=== PATIENT | male | born 1950 | race Caucasian/White ===

== ENCOUNTER → 2019-05-20 06:29 | Outpatient (CLI) | payer MEDICARE, SELFPAY ==
--- NOTE | 2019-05-20 | CA_ITS ---
APPROVED REPORT Exam: Pharmacologic Technologist: Meli Neil Ht: 6 ft 1 in Wt: 215 lbs BSA: 2.22 m2 HR: 69 bpm BP: 140/76 mmHg Indications: CAD, SOB, AAA, Smoker Medical History Medications: Aspirin,,,,, Carvedilol,,,,, TAMSULOSIN,,,,, Plavix,,,,, Nitro,,,,, Bicalutamide,,,,, Stress Test Details Test: LEXISCAN HR Resting HR: 50 bpm Max Heart Rate (APMHR): 154 bpm Max HR Achieved: 96 bpm Target HR (85% APMHR): 130 bpm % of APMHR: 62 Recovery HR: 77 bpm BP Resting BP: 140.0/76.0 mmHg Max BP: 140.0/76.0 mmHg Recovery BP: 112.0/66.0 mmHg ECG Clinical Exercise duration: 04:01 min Highest Stage Achieved: Exercise capacity: 1.0 METs Stress ECG Conclusion Resting ECG: Sinus rhythm with right bundle branch block. Lexiscan portion complete. Symptoms: Chest pain at peak infusion, resolved in recovery. No shortness of breath. Arrhythmias/Ectopy: No ectopy. ST-T Changes: Less than 1.[address] depression. Conclusion: Images to follow. Test Summary RECOVERY 04:24 . . 76 . 112/ 66 . . REST 25:19 . . 50 . 140/ 76 . . Stage 1 01:00 . . 82 . . . . Stage 2 01:00 . . 85 . 85/ 55 . . Stage 3 01:00 . . 83 . 89/ 60 . . Stage 4 01:00 . . 84 . 101/ 64 . . Stage 4 01:01 . . 84 . 101/ 64 . Stop exercise at 04:01 RECOVERY 01:00 . . 85 . 102/ 67 . . RECOVERY 02:00 . . 82 . 108/ 75 . . RECOVERY 03:00 . . 80 . 117/ 70 . . RECOVERY 04:00 . . 76 . 112/ 66 . . RECOVERY 04:24 . . 76 . 112/ 66 . . Electronically signed by : Emanuel Lau, 05/20/2019 19:57:53
--- NOTE | 2019-05-20 06:33 | CA_ITS ---
APPROVED REPORT EXAM: Comprehensive 2D, Doppler, and color-flow Echocardiogram Thin Film Technician: Barbi Driscoll RT(R) Ht: 6 ft 1 in Wt: 207lbs BSA: 2.18 BP: 140/80 mmHg Indications: smoking, HTN, SOB, Hyperlipidemia, hx of CHF, CAD, hx of 2 cardiac stents 2D Dimensions LVOT 1.86 cm (M/F) 1.5-2.5 M-Mode Dimensions RVDd 2.57 cm (0.9-2.6) LVDd 4.42 cm (3.5-5.7) LVDs 3.48 cm (3.5-5.7) IVSd 1.32 cm (0.6-1.1) PWd 1.02 cm (0.6-1.1) EF (Teich) 43.30% FS 21.30% EDV (Teich) 88.60 mL ESV (Teich) 50.20 mL LV Diastology E/A Ratio 0.73 Mitral Valve MV A Velocity 82.00 (40-130 cm/s) Left Ventricle Left atrium is mildly enlarged, left ventricle is normal size, mild concentric left ventricular hypertrophy, visually estimated ejection fraction 45%, there is moderate hypokinesis involving the distal septum and apical wall. Grade 1 diastolic dysfunction seen without tissue Doppler evidence of raise left atrial pressure. Right Ventricle Right atrium and right ventricular normal size and contractility. Aortic Valve Aortic valve is minimally thickened and fibrosed, there is no aortic stenosis or aortic insufficiency. Mitral Valve Mitral valve is grossly normal, there is mild mitral regurgitation. Tricuspid Valve Tricuspid valve is grossly normal, there is mild tricuspid regurgitation. Pulmonic Valve Pulmonic valve is poorly visualized. Great Vessels Aortic root is normal size. Pericardium No significant pericardial effusion noted. Conclusion 1. Mildly enlarged left atrium, normal left ventricular size, mild concentric left ventricular hypertrophy, visually estimated ejection fraction 45% with multiple segmental wall motion abnormality described above, grade 1 diastolic dysfunction seen without tissue Doppler evidence of raise left atrial pressure. 2. Mild mitral and tricuspid regurgitation. 3. No significant pericardial effusion noted. Electronically signed by : Emanuel Lau, 05/20/2019 21:18:54
--- NOTE | 2019-05-20 06:35 | US_ITS ---
PROCEDURE: US ABD. AORTA SCREENING CLINICAL INDICATION: tobacco use Screening for abdominal aortic aneurysm COMPARISON: No exams were available for comparison FINDINGS: There is fusiform dilatation of the mid aspect of the abdominal aorta at 4.4 cm AP and 3.7 cm transverse. This does appear to taper at the bifurcation. Proximal common iliacs are unremarkable. The measurements given range from 4 to 4.7 cm AP IMPRESSION: Mid abdominal aortic aneurysm at least at 4.4 x 3.[address] angiogram for better visualization and more accurate measurements and have a more accurate baseline for follow-up. Dictated by: Alexys Barrios MD 05/21/2019 08:24 Electronically signed by Alexys Barrios MD in [facility] 05/21/2019 08:24
--- NOTE | 2019-05-20 06:35 | NM_ITS ---
APPROVED REPORT Exam: Nuclear Stress Test Indication: Chest pain, SOB, CAD, Fatigue, Tobacco use, Family history Patient Location: Outpatient Stress Tech: Meli Neil NM Tech:Dulce Shipley, ARRT, RT (R)(N) Ht: 6 ft 1 in Wt: 215 lbs HR: 69 bpm BP: 140/76 mmHg BSA: 2.22 m2 BMI: 28.3 History: Chest pain, SOB, CAD, Fatigue, Tobacco use, Family history Procedure: Patient received a 0.4 mg of intravenous Lexiscan, resting heart rate 69 bpm, resting blood pressure 140/76 mmHg, with Lexiscan maximum heart rate achived was 87 bpm which is Less than 85 % of the maximum predicted heart rate and blood pressure was 85/55 mmHg. Electrocardiogram Resting electrocardiogram showed sinus rhythm anterior infarct age indeterminate, with Lexiscan there is less than 1.[address] segment depression noted from the baseline EKG. Cardiac Stress and Resting SPECT Images: Cardiac Stress and Resting SPECT images were obtained using technetium 99m Myoview 28.9 mCi stress and 10.07 mCi at rest. Gated SPECT with analysis of segmental wall motion and calculation of the ejection fraction also done. Cardiac stress and resting SPECT images show a fixed defect involving the distal anterior apical apical and inferior apical wall and a fixed pattern consistent with area of myocardial scarring with minimal katarzyna-infarct ischemia. Computer derived ejection fraction 56% with marked hypokinesis involving the distal anterior apical, apical and inferior apical wall. Right ventricle is normal size and contractility. Conclusion: 1. The EKG portion of the Lexiscan Myoview is nondiagnostic. 2. Scintigraphic evidence of myocardial scar scarring with minimal katarzyna-infarct ischemia involving the distal anterior, apical and inferior apical wall. Computer derived ejection fraction is 56% with segmental wall motion abnormality described above, right ventricle is normal size and contractility. 3. Abnormal Lexiscan Myoview study. Electronically signed by : Emanuel Lau, 05/20/2019 20:00:38
--- NOTE | 2019-05-20 07:08 | HMH.ITSHM ---
Current Home Medications as stated by this patient Luis Fernando Parker or outside dealer sales representative. []PLAVIX ASA TAMSULOSIN NITRO CARVEDILOL BICALUTAMIDE
== END ==
PROVIDERS: PCP Family Medicine; Visit Provider Internal Medicine Cardiovascular Disease
DX: R06.02 Shortness of breath (principal); E78.2 Mixed hyperlipidemia; I11.9 Hypertensive heart disease without heart failure; I25.10 Atherosclerotic heart disease of native coronary artery without angina pectoris; I50.20 Unspecified systolic (congestive) heart failure; R09.89 Other specified symptoms and signs involving the circulatory and respiratory systems; R53.83 Other fatigue; Z72.0 Tobacco use; R94.31 Abnormal electrocardiogram [ECG] [EKG]
CPT/HCPCS: 76705; 78452; 93017; 93306; A9502; J2785

== ENCOUNTER → 2019-06-17 09:15 | Outpatient (CLI) | payer MEDICARE, SELFPAY ==
[2019-06-17 09:44] LABS: Anion Gap 12.9 mEq/L (5-15); Blood Urea Nitrogen 18 mg/dL (7-18); Calcium 9.1 mg/dL (8.5-10.1); Carbon Dioxide 28 mmol/L (21.0-32.0); Chloride 105 mmol/L (98-107); Creatinine,Serum 1.02 mg/dL (0.70-1.30); Estimated Glomerular Filt Rate 73 ml/min (>60); GFR (African American) 88 ML/MIN (>60); Glucose 97 mg/dL (74-106); Potassium 4.9 mmoL/L (3.5-5.1); Sodium 141 mmol/L (136-145)
[2019-06-17 09:54] LABS: Basophils % 0.6 % (0.1-2.0); Eosinophils # 0.2 K/mm3 (0.0-0.4); Eosinophils % 3.1 % (0.1-12.0); Hematocrit 41.5 % (42.0-52.0); Hemoglobin 13.5 g/dL (14.1-18.0); Lymphocytes # 1.4 K/mm3 (0.7-4.5); Lymphocytes % 23.2 % (10-50); Mean Corpuscular HGB Conc 32.5 g/dL (31.8-35.4); Mean Corpuscular Volume 92.1 fl (80-94); Mean Platelet Volume 6.6 fl (7.4-10.4); Monocytes # 0.5 K/mm3 (0.1-1.0); Monocytes % 7.7 % (1.7-9.3); Neutrophils # 3.9 K/mm3 (1.8-7.8); Neutrophils % 65.4 % (37.0-80.0); Platelet Count 298 K/mm3 (142-424); Red Blood Count 4.51 M/mm3 (4.60-6.20); Red Cell Distribution Width 14.2 % (11.5-17.5); White Blood Count 5.9 K/mm3 (4.8-10.8)
--- NOTE | 2019-06-17 13:32 | CT_ITS ---
Procedure: CT ANGIO ABDOMEN Patient Age:68Y CLINICAL HISTORY: Previous screening ultrasound revealed developing abdominal aortic aneurysm. CT for further evaluation. COMPARISON: US ABD. AORTA SCREENING from 05/20/2019 the the TECHNIQUE: IV Contrast: 100ml Optiray 350 Helical axial images obtained with sagittal and coronal reformats. All CT scans at the facility use one or more dose reduction, viz: automated exPosure control, ma/kV adjustment per patient size (including targeted exams where dose is matched to indication, i.e. head), or iterative reconstruction technique. FINDINGS: Arteries: Images begin at the lower thorax noted generous caliber aorta throughout. He aneurysmal dilated segment of the lower abdominal aorta which extends for5.5 cm length. Aorta measures up to 4.6cm AP maximally diameter x 3.65 cm transverse there is diffuse crescentic noncalcified atheromatous plaque is throughout the aorta but becomes most evident at the aneurysmal segment. The inferior margin the aneurysm ends at the level of BERNADETTE and with aneurysm extending 5.5 cm superior to this point More distally (just below the BERNADETTE and just above aortic bifurcation) the aorta slightly dilated measuring 3 cm the diameter. Possible minimal ulcerated soft plaque to the left just at, just above bifurcation; this small 6.5 mm focus of this questionable ulceration with slight overhanging margins.. Variable undulating soft plaque seen elsewhere throughout entire aorta and iliacs. Right common iliac artery is dilated more so on the left. Right common iliac artery measuring 17.6mm. Left common iliac artery 13.5 mm, with slightly more pronounced noncalcified plaque throughout. Mild calcified atherosclerotic changes at proximal iliac arteries bilaterally.. Of the mild stenosis at origin of left internal iliac but the external iliac however remains widely patent to the final images at lower pelvis The renal arteries appear widely patent bilaterally with no remarkable stenosis. Minimal calcified plaque along posterior origin origin left renal artery is insignificant. Good enhancement of both kidneys. The SMA and celiac artery appears satisfactory only scant insignificant mild fluid limiting calcified plaque at proximal SMA Lung bases are clear. The liver, pancreas, adrenals of appears satisfactory and unremarkable The patchy appearance at this normal size spleen reflects early enhancement Gallbladder: Rim calcified gallstone towards neck of gallbladder measures at least 1 cm. Gallbladder otherwise appears normal. No distension or wall thickening or inflammation.. Common duct appears normal diameter throughout Kidneys with normal enhancement. No obstruction... Majority ureters visualized and unremarkable. (UVJ s not included) upper half of urinary bladder is included with mild diffuse wall thickening noted. The benefit urinalysis GI tract. No dilatation or obstruction. Colonic diverticulosis most extensive at sigmoid colon and descending colon. Diverticula are also seen at the right colon no diverticulitis [id number] stool right and transverse colon. Small bowel and stomach unremarkable. Appendix normal IMPRESSION: 1. Generous caliber aorta throughout 2.. Infrarenal aorta with aneurysm dilatation: 4.6 cm maximum AP x 3.5 cm through this segment 3.. Circumferential undulating noncalcified plaque throughout abdominal aorta,, becomes most pronounced through the aneurysmal segment. . . Possible small ulcerations soft plaque within the aorta just at bifurcation. . Cholelithiasis . Suggestion of mild urinary bladder wall thickening.. . Colonic diverticulosis. No diverticulitis Dictated by:
== END ==
PROVIDERS: PCP Family Medicine; Visit Provider Internal Medicine
DX: C61 Malignant neoplasm of prostate (principal); E78.2 Mixed hyperlipidemia; I11.9 Hypertensive heart disease without heart failure; I25.10 Atherosclerotic heart disease of native coronary artery without angina pectoris; I42.9 Cardiomyopathy, unspecified; I50.20 Unspecified systolic (congestive) heart failure; I71.4 Abdominal aortic aneurysm, without rupture; R09.89 Other specified symptoms and signs involving the circulatory and respiratory systems; R94.31 Abnormal electrocardiogram [ECG] [EKG]; Z72.0 Tobacco use; Z95.5 Presence of coronary angioplasty implant and graft
CPT/HCPCS: 36415; 74175; 80048; 85025; Q9967

== ENCOUNTER → 2020-06-11 12:36 | Outpatient (CLI) | payer MEDICARE, SELFPAY ==
[2020-06-11 13:21] LABS: Blood Urea Nitrogen 21 mg/dl (9-20); Estimated Glomerular Filt Rate 60 ml/min (>60); GFR (African American) 73 ML/MIN (>60)
== END ==
PROVIDERS: Visit Provider Urology
DX: Z01.818 Encounter for other preprocedural examination (principal)
CPT/HCPCS: 36415; 82565; 84520

== ENCOUNTER → 2020-06-15 08:53 | Outpatient (CLI) | payer MEDICARE, SELFPAY ==
--- NOTE | 2020-06-15 08:54 | CT_ITS ---
Procedure: CT ANGIO ABDOMEN CLINICAL HISTORY: AAA COMPARISON: US US ABD. AORTA SCREENING from 05/20/2019 05/20/2019 TECHNIQUE: IV Contrast: 100ml Isovue 370 Axial images obtained with sagittal and coronal reformats. All CT scans at the facility use one or more dose reduction, viz: automated exposure control, ma/kV adjustment per patient size (including targeted exams where dose is matched to indication, i.e. head), or iterative reconstruction technique. FINDINGS: The lower lung rm are clear. The liver spleen and pancreas appear grossly normal. The gallbladder is normal in size and there is a partially calcified gallstone near the neck of the gallbladder. The adrenal glands are normal. The kidneys are normal in size and show symmetrical function both appearing normal. There is excellent vascular opacification. The celiac and superior mesenteric arteries appear grossly normal. There is mild diffuse aneurysmal dilatation of the infrarenal aorta measuring up to 34.3 x 3.7 cm in diameter and 5.7 cm in length with a moderate amount of intraluminal plaque noted at the proximal extent of this fusiform aneurysm. Minimal scattered arteriosclerotic calcifications are noted. There is no evidence of leakage. The aorta tapers to normal caliber at the bifurcation though there is mild aneurysmal dilatation of the proximal right common iliac artery. The small bowel is unremarkable. There is scattered stool and gas seen throughout the colon with diffuse diverticulosis of the lower descending and sigmoid colon but with no evidence of diverticulitis. IMPRESSION: Fusiform aneurysm infrarenal aorta with prominent intraluminal plaque proximal extent of the aneurysm and with no evidence of leakage Dictated by: Dr. Tommy Scott MD 06/15/2020 09:59 Dr. Tommy Scott MD in [facility] 06/15/2020 09:59
--- NOTE | 2020-06-15 09:07 | CA_ITS ---
APPROVED REPORT Extrusion Die Template Maker: Deborah Fonseca RVT Laterality: Bilateral Study Quality: Good Indications: Carotid stenosis Risk Factors Hypertension: Hyperlipidemia Smoking Doppler Spectral Velocity Analysis ECA (R) 143.30/23.50 cm/s ECA (L) 154.00/27.80 cm/s dICA (R) 90.90/36.40 cm/s dICA (L) 92.00/42.80 cm/s Jill (R) 110.10/41.70 cm/s Jill (L) 78.10/36.40 cm/s pICA (R) 136.90/41.70 cm/s pICA (L) 105.90/26.70 cm/s dCCA (R) 51.30/16.00 cm/s dCCA (L) 96.20/29.90 cm/s pCCA (R) 125.10/32.10 cm/s pCCA (L) 93.00/32.10 cm/s Vert (R) 37.40/17.10 cm/s Vert (L) 27.80/11.80 cm/s ICA/CCA 2.67 ICA/CCA 1.10 Findings Study suggests less than 20% stenosis of the right internal cartoid artery. Study suggests less than 20% stenosis of the left internal cartoid artery. Antegrade flow seen bilateral vertebral arteries. Conclusion Study suggests less than 20% stenosis of the right internal cartoid artery. Study suggests less than 20% stenosis of the left internal cartoid artery. Antegrade flow seen bilateral vertebral arteries. Electronically signed by : Boone Caicedo MD 06/16/2020 20:00:18
--- NOTE | 2020-06-15 09:07 | CA_ITS ---
APPROVED REPORT EXAM: Comprehensive 2D, Doppler, and color-flow Echocardiogram Stage Hand: Deborah Fonseca RVT Ht: 6 ft 1 in Wt: 211lbs BSA: 2.20 BP: 155/90 mmHg Indications: soa,edema,smoker,htn,hld,chf,cad,stents,cm,aaa tds 2D Dimensions LVOT 2.24 cm (M/F) 1.5-2.5 M-Mode Dimensions RVDd 3.17 cm (0.9-2.6) LA Diam 3.07 cm (1.9-4.0) LVDd 5.03 cm (3.5-5.7) Ao Diam 3.66 cm (2.0-3.7) LVDs 3.47 cm (3.5-5.7) IVSd 0.85 cm (0.6-1.1) PWd 0.76 cm (0.6-1.1) EF (Teich) 58.50% FS 31.00% EDV (Teich) 119.90 mL ESV (Teich) 49.80 mL LV Diastology E Decel Time 173.00 (160-240 msec) E/A Ratio 0.8 MED E' 4.70 (< 7 cm/sec) E'/MED E' Ratio 11.66 (>14) LAT E' 7.10 (<10 cm/sec) E/LAT E' Ratio 7.72 (>14) Mitral Valve MV E Max Robert. 55.00 (40-130 cm/s) MV A Velocity 69.00 (40-130 cm/s) E/A Ratio 0.80 MV Decel. Time 173.00 (160-240 ms) MV PHT 51.00 ms Pulmonary Valve PV Peak Velocity 67.00 (50-150 cm/s) Tricuspid Valve TR P. Velocity 268.00 cm/s RAP Estimate 10.00 mmHg RVSP 38.70 mmHg Left Ventricle Left atrium is mildly enlarged, left ventricle is normal size, mild concentric left ventricular hypertrophy, visually estimated ejection fraction 35%, there is marked hypokinesis involving the basal septum, inferior basal, distal septum, anterior apical and apical wall. Grade 1 diastolic dysfunction seen without tissue Doppler evidence of raise left atrial pressure. Right Ventricle Right atrium and right ventricle are normal size and contractility. Aortic Valve Aortic valve is minimally thickened and fibrosed, there is no aortic stenosis or aortic insufficiency. Mitral Valve Mitral valve is grossly normal, there is mild mitral regurgitation. Tricuspid Valve Tricuspid valve grossly normal, there is mild tricuspid regurgitation, tricuspid regurgitation jet velocity is inadequate for calculation of the right ventricular systolic pressure. Pulmonic Valve Pulmonic valve is poorly visualized. Great Vessels Aortic root is normal size. Pericardium No significant pericardial effusion noted. Conclusion 1. Mildly enlarged left atrium, normal left ventricular size, mild concentric left ventricular hypertrophy, visually estimated ejection fraction 35% with multiple segmental wall motion abnormality described above, grade 1 diastolic dysfunction seen without tissue Doppler evidence of raise left atrial pressure. 2. Mild mitral and tricuspid regurgitation. 3. No significant pericardial effusion noted. Electronically signed by : Emanuel Lau, 06/15/2020 18:21:53
== END ==
PROVIDERS: PCP Family Medicine; Visit Provider Urology
DX: I71.4 Abdominal aortic aneurysm, without rupture (principal); I25.10 Atherosclerotic heart disease of native coronary artery without angina pectoris; I50.22 Chronic systolic (congestive) heart failure; R09.89 Other specified symptoms and signs involving the circulatory and respiratory systems; I11.0 Hypertensive heart disease with heart failure
CPT/HCPCS: 74175; 93306; 93880; Q9967

== ENCOUNTER → 2020-06-22 12:26 | Outpatient (CLI) | payer MEDICARE, SELFPAY ==
[2020-06-22 13:28] LABS: Basophils # 0.1 K/mm3 (0-0.2); Basophils % 0.7 % (0.1-2.0); Eosinophils # 0.3 K/mm3 (0.0-0.4); Hematocrit 41.8 % (42.0-52.0); Hemoglobin 14.2 g/dL (14.1-18.0); Lymphocytes # 1.7 K/mm3 (0.7-4.5); Lymphocytes % 23.7 % (10-50); Mean Corpuscular Hemoglobin 31.3 pg (27.0-31.2); Mean Corpuscular Volume 92.1 fl (80-94); Mean Platelet Volume 6.8 fl (7.4-10.4); Monocytes # 0.6 K/mm3 (0.1-1.0); Monocytes % 7.9 % (1.7-9.3); Neutrophils # 4.4 K/mm3 (1.8-7.8); Neutrophils % 63.6 % (37.0-80.0); Platelet Count 250 K/mm3 (142-424); Red Blood Count 4.54 M/mm3 (4.60-6.20); Red Cell Distribution Width 14.1 % (11.5-17.5); White Blood Count 6.9 K/mm3 (4.8-10.8)
[2020-06-22 13:50] LABS: Anion Gap 13.3 mEq/L (5-15); Blood Urea Nitrogen 21 mg/dl (9-20); Calcium 9.8 mg/dl (8.4-10.2); Carbon Dioxide 29 mmol/L (22.0-30.0); Chloride 102 mmol/L (98-107); Estimated Glomerular Filt Rate 67 ml/min (>60); GFR (African American) 81 ML/MIN (>60); Glucose 91 mg/dl (74-100); Potassium 4.3 mmoL/L (3.5-5.1); Sodium 140 mmol/L (136-145)
[2020-06-22 14:21] LABS: Coronavirus 19 IgG Antibody Negative (Negative); Coronavirus 19 IgM Antibody Negative (Negative)
== END ==
PROVIDERS: Visit Provider Internal Medicine
DX: I20.8 Other forms of angina pectoris; Z01.818 Encounter for other preprocedural examination; Z03.818 Encounter for observation for suspected exposure to other biological agents ruled out
CPT/HCPCS: 36415; 80048; 85025; 86328

== ENCOUNTER 2020-06-23 08:00 | Day surgery (SDC) | payer MEDICARE, SELFPAY ==
[2020-06-23] VITALS (13 sets, daily range): BP systolic 107–151; BP diastolic 53–82; PULSE 54–90; RESP 13–18; TEMP 36.9; O2SAT 96–100; BMI 27.0
--- NOTE | 2020-06-23 08:27 | IR_ITS ---
APPROVED REPORT Patient Location: Outpatient Die Caster: RADHA Vera RT (R) PROCEDURES Left heart catheterization Left ventriculogram Selective coronary angiogram INDICATION Abnormal Myoview, Known ischemic cardiomyopathy, Interval decrease in ejection fraction 45% interval dropped to 35% Informed consent was obtained prior to the procedure. COMPLICATIONS none Estimated Blood Loss: less than 10 mls TECHNIQUE One percent lidocaine used to anesthetize the right anterior aspect of the wrist. The right radial artery was accessed via the Seldinger technique. A 6 Persian sheath was placed in the right radial artery. 2.5 mg of verapamil, 800 mcg of nitroglycerin, 1mg Lidocaine and 5000 U Heparin were given through the arterial sheath. The trap catheter was also used to perform left heart catheterization, left ventriculogram and selective coronary angiogram. At the end of the procedure the sheath was removed good hemostasis was achieved using Traclet band, patient was transferred to the postop holding area in stable condition. ANGIOGRAPHIC RESULTS The left main artery Normal The left anterior descending artery There is a stent in the ostial proximal mid segment which is widely patent free of in-stent restenosis with excellent proximal distal transitioning. The circumflex artery Is a dominant vessel and has a stent in the ostial proximal segment which is widely patent free of in-stent restenosis with excellent proximal distal transitioning. The first obtuse marginal artery is approximately 2 mm in diameter and has a proximal 70% stenosis. The terminal obtuse marginal artery which is also 2 mm in diameter has a proximal 50% followed by an additional 60% stenosis The right coronary artery Is nondominant yet still large and has stents in the proximal through mid segment which are widely patent with minimal in-stent restenosis with excellent proximal distal transitioning. The entire vessel has diffuse 20 and 30% nonflow limiting stenoses. The CASILLAS ventriculogram reveals Reduced ejection fraction with mid anterior apical hypokinesis estimated ejection fraction 45% The left ventricular end-diastolic pressure 10 mmHg IMPRESSION Coronary artery disease as described above Regional wall motion abnormality which is unchanged from previous cardiac catheterization Unchanged ejection fraction by LV gram. Normal left ventricular end-diastolic pressure Moderate to severe disease in the first and second obtuse marginal artery PLAN 1. At this point I recommend medical management. Although the obtuse marginal arteries could potentially be stented these vessels are ideal for medical management due to the smaller caliber vessel 2. Continue standard therapy 3. Cardiac rehabilitation Electronically signed by : Sam Mariee, 06/23/2020 15:25:32
== END 2020-06-23 13:45 ==
LOC: CATHLAB 08:02
PROVIDERS: PCP Family Medicine; Visit Provider Internal Medicine
DX: I25.5 Ischemic cardiomyopathy; I50.22 Chronic systolic (congestive) heart failure; I25.118 Atherosclerotic heart disease of native coronary artery with other forms of angina pectoris; I11.0 Hypertensive heart disease with heart failure; Z72.0 Tobacco use; Z79.899 Other long term (current) drug therapy; Z79.82 Long term (current) use of aspirin
CPT/HCPCS: 93458; 99152; C1725; C1769; J1644; Q9967

== ENCOUNTER → 2020-10-12 07:44 | Outpatient (CLI) | payer MEDICARE, SELFPAY ==
--- NOTE | 2020-10-12 07:45 | CA_ITS ---
APPROVED REPORT EXAM: Comprehensive 2D, Doppler, and color-flow Echocardiogram Sulfonator Operator: Briana Winter, ALAINA, RVS Ht: 6 ft 1 in Wt: 205lbs BSA: 2.17 BP: 141/83 mmHg 2D Dimensions IVSd 1.26 cm M: 0.6-1.2 LVEF (Visual) 45.00 % PWd 1.33 cm M: 0.6 - 1.2 LVDd 4.89 cm M: 4.2 - 5.9 LVDs 3.81 cm M: 2.5 - 4.0 Conclusion 1. Limited echocardiogram was obtained to evaluate left ventricular systolic function, normal left ventricular size, visually estimated ejection fraction 40%, there is marked hypokinesis involving mid to distal septum, anterior and anterior apical wall. 2. No significant pericardial effusion noted. Electronically signed by : Emanuel Lau, 10/12/2020 10:12:19
== END ==
LOC: RT 07:45
PROVIDERS: PCP Family Medicine; Visit Provider Nurse Practitioner Family
DX: E78.2 Mixed hyperlipidemia (principal); I11.9 Hypertensive heart disease without heart failure; I25.10 Atherosclerotic heart disease of native coronary artery without angina pectoris; I25.5 Ischemic cardiomyopathy; I50.22 Chronic systolic (congestive) heart failure; I71.4 Abdominal aortic aneurysm, without rupture; R06.02 Shortness of breath; Z72.0 Tobacco use
CPT/HCPCS: 93308

== ENCOUNTER → 2020-12-30 08:26 | Outpatient (CLI) | payer MEDICARE, SELFPAY ==
--- NOTE | 2020-12-30 08:28 | CA_ITS ---
APPROVED REPORT EXAM: Comprehensive 2D, Doppler, and color-flow Echocardiogram Weather Forcaster: Barbi Driscoll RT(R) Ht: 6 ft 1 in Wt: 205lbs BSA: 2.17 BP: 141/83 mmHg Indications: DD, HTN, Hyperlipidemia, palpitations, smoker, SOB, HERNANDEZ, EF of 40% on 10/12/20, limited echo today to assess EF. History of CM 2D Dimensions LVEF (Bell's) 66.20 % M: 52 - 72 LV Volume 91.50 mL M: 62 - 150 LV Volume Index 42.16 mL/m2 M: 34 - 74 M-Mode Dimensions RVDd 2.93 cm (0.9-2.6) LVDd 4.64 cm (3.5-5.7) LVDs 3.74 cm (3.5-5.7) IVSd 1.11 cm (0.6-1.1) PWd 0.85 cm (0.6-1.1) EF (Teich) 40.00% FS 19.40% EDV (Teich) 99.30 mL ESV (Teich) 59.60 mL Conclusion 1. Limited echocardiogram was obtained to evaluate left ventricular systolic function. 2. Normal left ventricular size, visually estimated ejection fraction 50%, there is discrete wall motion abnormality involving the distal septum and apical wall which are markedly hypokinetic. 3. No significant pericardial effusion noted. Electronically signed by : Emanuel Lau, 12/31/2020 15:13:43
== END ==
LOC: RT 08:28
PROVIDERS: PCP Family Medicine; Visit Provider Internal Medicine
DX: I25.5 Ischemic cardiomyopathy (principal)
CPT/HCPCS: 93308

== ENCOUNTER → 2021-01-13 08:37 | Outpatient (CLI) | payer MEDICARE, SELFPAY ==
[2021-01-13 09:32] LABS: Blood Urea Nitrogen 13 mg/dl (9-20); Estimated Glomerular Filt Rate 84 ml/min (>60); GFR (African American) 102 ML/MIN (>60)
== END ==
PROVIDERS: Nurse Practitioner Family; Visit Provider Internal Medicine Cardiovascular Disease
DX: I25.5 Ischemic cardiomyopathy (principal); E78.5 Hyperlipidemia, unspecified
CPT/HCPCS: 36415; 80061; 80076; 82565; 84520

== ENCOUNTER → 2021-01-13 09:01 | Outpatient (CLI) | payer MEDICARE, SELFPAY ==
--- NOTE | 2021-01-13 09:02 | CT_ITS ---
Procedure: CT ANGIO ABDOMEN CLINICAL HISTORY: abdominal aortic aneurysm Follow up AAA COMPARISON: CT CT ANGIO ABDOMEN from 06/17/[address] ANGIO ABDOMEN from 06/15/2020 TECHNIQUE: IV Contrast: 100ml Isovue 370 Axial images obtained with sagittal and coronal reformats. All CT scans at the facility use one or more dose reduction, viz: automated exposure control, ma/kV adjustment per patient size (including targeted exams where dose is matched to indication, i.e. head), or iterative reconstruction technique. FINDINGS: Infrarenal abdominal aortic aneurysm once again noted with a maximum dimension 3.7 cm transverse and 4.5 cm AP. Overall not significantly changed. There is a mild amount of mural thrombus within the aneurysm. The aneurysm begins approximately 2.3 cm below the level the renal arteries extending to the bifurcation. There is endo luminal irregularity of the abdominal aorta with areas of atheromatous ulcers. There is mild dilatation of the proximal right common iliac at 1.8 cm. Small intimal flap is present in the left common iliac artery image 54 series 3. A small saccular aneurysm involves the distal aspect of the left common iliac artery not significantly changed. The SMA and celiac arteries have an unremarkable appearance. There is some mild atheromatous plaque at the proximal left renal artery with at least 50 percent stenosis. There is an accessory right renal artery to the lower pole. There is stenosis of the ostium of the BERNADETTE from atheromatous plaque. No evidence of retroperitoneal hemorrhage. There is calcification noted within the region of the neck of the gallbladder. This could represent small stones. Partially calcified nodule is an additional consideration. This is similar compared to 06/17/2019. Ultrasound may further evaluate. The spleen, adrenal glands, pancreas, and kidneys have an unremarkable appearance. No intestinal obstruction or free air. There is colonic diverticulosis but no evidence of diverticulitis. There is nonspecific mild thickening of the urinary bladder wall. There are numerous small punctate blastic foci noted within the lumbar spine and lower thoracic spine within every vertebral body from T11-L1 and also within the bilateral ulices.. The patient does give history of prostate cancer. These multiple blastic foci are highly suspicious for metastatic disease. IMPRESSION: 1. Overall no change in the fusiform infrarenal abdominal aortic aneurysm 3.7 x 4.5 cm. No evidence of retroperitoneal hematoma. Diffuse atherosclerotic changes with mural thrombus of the aorta with areas of atheromatous ulceration. 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 2. At least 50 percent stenosis of the ostium of the left renal artery. 3. Persistent calcification in the neck of the gallbladder with questionable soft tissue density. A nodule of the gallbladder is not excluded. Gallbladder ultrasound may provide further evaluation. 4. Interval development of numerous small blastic foci consistent with metastatic disease in this patient with known prostate cancer. Dictated by: Alexys Barrios MD 01/14/2021 09:11 Alexys Barrios MD in [facility] 01/14/2021 09:11
[2021-01-13 09:32] LABS: Alanine Aminotransferase 12 U/L (12-78); Aspartate Amino Transferase 20 U/L (17-59)
[2021-01-13 09:33] LABS: Albumin Level 4.6 g/dl (3.5-5.0); Alkaline Phosphatase 97 U/L (38-126); Bilirubin,Direct 0.3 mg/dl (0.0-0.4); Bilirubin,Total 0.3 mg/dl (0.2-1.3); Chol/HDL Ratio 5.8 (1-3.5); Cholesterol 254 mg/dl (140-200); HDL Cholesterol 44 mg/dl (40-60); Total Protein,Serum 7.3 g/dl (6.3-8.2); Triglycerides 348 mg/dl (30-150); VLDL Cholesterol 70 mg/dL (0-40)
[2021-01-13 09:44] LABS: Direct LDL Cholesterol 140.86 mg/dL (100-129)
== END ==
PROVIDERS: Internal Medicine Cardiovascular Disease; PCP Family Medicine; Visit Provider Nurse Practitioner Family
DX: E78.5 Hyperlipidemia, unspecified (principal); I25.10 Atherosclerotic heart disease of native coronary artery without angina pectoris; I25.5 Ischemic cardiomyopathy; I50.20 Unspecified systolic (congestive) heart failure; I71.4 Abdominal aortic aneurysm, without rupture; R06.02 Shortness of breath; Z72.0 Tobacco use
CPT/HCPCS: 36415; 74175; 80061; 80076; 82565; 84520; Q9967

== ENCOUNTER → 2022-03-02 07:40 | Outpatient (CLI) | payer MEDICARE, SELFPAY ==
--- NOTE | 2022-03-02 | CA_ITS ---
APPROVED REPORT Exam: Pharmacologic Technologist: Rosanna Mcintyre, Ht: 5 ft 11 in Wt: 188 lbs BSA: 2.05 m2 HR: 63 bpm BP: 135/78 mmHg Rhythm: NSR, low voltage QRS, old anterolaterial NC Medical History Medical History: HTN, Hyperlipidemia Medications: Aspirin,,,,, Losartan,,,,, Carvedilol,,,,, CloPIdogrel,,,,, NitrogGLYCERIN,,,,, Enzalutamide,,,,, Cardiac Risk Factors: HTN, Hyperlipidemia Stress Test Details Test: LEXISCAN HR Resting HR: 64 bpm Max Heart Rate (APMHR): 151.787045 bpm Max HR Achieved: 88 bpm Target HR (85% APMHR): 128.403607 bpm % of APMHR: 58.28 Recovery HR: 82 bpm BP Resting BP: 135/78 mmHg Max BP: 135/78 mmHg Recovery BP: 135.0/72.0 mmHg ECG Resting ECG: NSR, low voltage QRS, old anterolateral NC Clinical Exercise duration: 04:00 min Highest Stage Achieved: Stress ECG Conclusion During lexiscan pt experinced mild SOA, stomach pain. No CP noted. No arrhythmias noted. NS T wave changes. Non-diagnostic lexiscan stress. Myoview images reported separately. Electronically signed by : Emanuel Lau MD 03/02/2022 12:55:42
--- NOTE | 2022-03-02 07:41 | CT_ITS ---
FINAL REPORT TECHNIQUE: Pre-and postcontrast images of the abdomen were performed by computed tomography. Extensive 3-D reconstruction images were performed. A CTA was performed. This study was performed with techniques to keep radiation doses as low as reasonably achievable (ALARA). Individualized dose reduction techniques using automated exposure control or adjustment of mA and/or kV according to the patient's size were employed. CLINICAL HISTORY: aaa COMPARISON: January 13, 2021 FINDINGS: CTA ABDOMEN ABDOMEN: The lung bases are clear. Precontrast images demonstrate no evidence of nephrolithiasis. No adrenal masses are identified. The liver, spleen and pancreas are unremarkable. The appendix is normal. There are multiple colonic diverticula. CTA: There is an infrarenal abdominal aortic aneurysm with moderate mural thrombus. The aneurysm measures 4.8 cm and is stable. 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 The SMA, celiac axis, and BERNADETTE are patent. There is no significant stenosis or calcification. The right renal artery appears normal. There is apfh-jx-kioeqnzl stenosis in the proximal left renal artery which appears somewhat worse. IMPRESSION: Stable 4.8 cm infrarenal abdominal aortic aneurysm with moderate mural thrombus. 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 Wngn-rq-rkjtpnna stenosis in the proximal left renal artery which appears somewhat worse. Reviewed, Interpreted and Dictated by Dariel Resendez III, MD Transcribed by Gauri Morales Authenticated and [facility]
--- NOTE | 2022-03-02 07:41 | NM_ITS ---
APPROVED REPORT Exam: Nuclear Stress Test Indication: SOB, Abnormal EKG, High cholesterol, Tobacco use, Family history, CAD Patient Location: Outpatient Stress Tech: Rosanna Mcintyre NM Tech:Dulce Shipley, ARRT, RT (R)(N) Ht: 6 ft 1 in Wt: 185 lbs HR: 64 bpm BP: 135/78 mmHg BSA: 2.08 m2 TID: 1.10 BMI: 24.4 History: SOB, Abnormal EKG, High cholesterol, Tobacco use, Family history, CAD Procedure: Patient received a 0.4 mg of intravenous Lexiscan, resting heart rate 64 bpm, resting blood pressure 135/78 mmHg, with Lexiscan maximum heart rate achived was 88 bpm which is Less than 85 % of the maximum predicted heart rate and blood pressure was 135/78 mmHg. With Lexiscan, patient denied any complaint of chest pain. Electrocardiogram Resting electrocardiogram showed sinus rhythm, with Lexiscan there is less than 1.[address] segment depression noted from the baseline EKG. The EKG portion of the Lexiscan is nondiagnostic. Cardiac Stress and Resting SPECT Images: Cardiac Stress and Resting SPECT images were obtained using technetium 99m Myoview 30.7 mCi stress and 10.36 mCi at rest. Gated SPECT for analysis of segmental wall motion and calculation of the ejection fraction also done. Prone images were also obtained. Cardiac stress and rest SPECT images show fixed defect involving the anterior apical and apical wall consistent with area of myocardial scarring in addition there is reversible ischemia involving the inferior wall, computer derived ejection fraction is 50% with marked hypokinesis involving the anterior apical wall. Right ventricle is mildly enlarged with normal contractility. Conclusion: 1. The EKG portion of the Lexiscan is nondiagnostic. 2. Scintigraphic evidence of myocardial scarring involving the anterior apical wall, in addition there is reversible ischemia involving the inferior wall, compared to ejection fraction 50% with segmental wall motion abnormality described above, right ventricle is mildly enlarged with normal contractility 3. Abnormal Lexiscan Myoview study suggestive of multivessel coronary artery disease. Electronically signed by : Emanuel Lau MD 03/02/2022 13:14:37
[2022-03-02 08:17] LABS: Blood Urea Nitrogen 16 mg/dl (9-20); Estimated Glomerular Filt Rate 74 ml/min (>60); GFR (African American) 90 ML/MIN (>60)
--- NOTE | 2022-03-02 09:37 | CA_ITS ---
FINAL REPORT TECHNIQUE: Color Doppler, duplex Doppler and castillo scale sonography of the bilateral neck arterial vasculature was performed. Velocities were measured in the carotid arteries. Stenosis evaluation based on the validated velocity criteria. CLINICAL HISTORY: LINDA, HTN, HLD, smoker, CAD FINDINGS: The peak systolic velocity of the right common carotid artery is 73 cm/s. The peak systolic velocity of the right internal carotid artery is 151 cm/s and end diastolic velocity 47 cm/s. A pqrw-qa-shkkqfzx amount of plaque is present. The right external carotid artery is patent. The right vertebral artery is patent with antegrade flow. ICA/CCA ratio: 2.2 The peak systolic velocity of the left common carotid artery is 107 cm/s. The peak systolic velocity of the left internal carotid artery is 98 cm/s and end diastolic velocity 39 cm/s. A stwh-vs-dapvqmyj amount of plaque is present. The left external carotid artery is patent.The left vertebral artery is patent with antegrade flow. ICA/CCA ratio: 1.2 IMPRESSION: Less than 50% bilateral carotid stenoses. Bilateral patent vertebral arteries with antegrade flow. If indicated, CTA or MRA could further evaluate. Reviewed, Interpreted and Dictated by Dariel Resendez III, MD Transcribed by Poli Dietz Authenticated and [facility]
--- NOTE | 2022-03-02 09:39 | HMH.ITSHM ---
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 []ASA PLAVIX LOSARTAN COREG XTANDI NITRO
== END ==
LOC: RAD 07:41
PROVIDERS: PCP Family Medicine; Visit Provider Nurse Practitioner Family
DX: R94.31 Abnormal electrocardiogram [ECG] [EKG] (principal); I71.4 Abdominal aortic aneurysm, without rupture; R09.89 Other specified symptoms and signs involving the circulatory and respiratory systems; I65.23 Occlusion and stenosis of bilateral carotid arteries
CPT/HCPCS: 36415; 74175; 78452; 82565; 84520; 93017; 93880; A9502; J2785; Q9967

== ENCOUNTER 2022-03-18 08:00 | Day surgery (SDC) | payer MEDICARE, SELFPAY ==
[2022-03-18] VITALS (14 sets, daily range): BP systolic 95–173; BP diastolic 15–96; PULSE 64–81; RESP 16–20; O2SAT 91–99; BMI 24.5
--- NOTE | 2022-03-18 | IR_ITS ---
APPROVED REPORT Patient Location: Outpatient Auricular Detoxification Specialist: RADHA Vera RT (R) PROCEDURES Left heart catheterization Selective coronary angiogram Left ventriculogram Drug-eluting stent deployment to the large posterior descending artery off the dominant circumflex artery Drug-eluting stent deployment to the first obtuse marginal artery/ramus intermedius off the circumflex artery Drug-eluting stent deployment to the distal dominant right coronary Nonselective left renal angiogram INDICATION Coronary artery disease, Abnormal Myoview, Angina pectoris Informed consent was obtained prior to the procedure. COMPLICATIONS None Estimated Blood Loss: less than 10 mls TECHNIQUE One percent lidocaine used to anesthetize the right anterior aspect of the wrist. The right radial artery was accessed via the Seldinger technique. A 6 Tamazight sheath was placed in the right radial artery. 2.5 mg of verapamil, 800 mcg of nitroglycerin, 1mg Lidocaine and 5000 U Heparin were given through the arterial sheath. The papa catheter was also used to perform left heart catheterization, left ventriculogram and selective coronary angiogram. At the end the diagnostic angiogram therapeutic heparin was administered giving a therapeutic ACT and a Choice PT extra-support wire was placed into the posterior descending artery off the dominant circumflex artery. A 2.5 x 38 mm resolute Chris stent was deployed at 20 carmen reducing the severe stenosis to 0%. DIANA-3 flow was present before and after the procedure. The wire was then pulled back and placed into a critically tight first obtuse marginal artery/ramus intermedius. The balloon was required for support to allow the wire to pass through the critical stenosis. Following this a 2 mm x 12 mm compliant balloon was deployed at 15 carmen to reduce the stenosis.. Following this a 2 mm x 22 mm resolute [place] stent was then deployed in the ramus intermedius/first obtuse marginal artery at 16 carmen reducing the critical stenosis to 0%. DIANA-3 flow was present before and after the procedure. The guide catheter was then placed in the dominant right coronary artery and the Choice PT extra-support wire was placed distally. A 2.530 mm resolute [place] stent was then placed in the distal right coronary artery and deployed at 18 carmen reducing this severe stenosis to 0%. DIANA-3 flow was present before and after the procedure. The catheter was attempted to cannulate the renal artery however it would not reach adequately therefore an ultra guide catheter was advanced. This was close to the left renal artery but still would not perform selective angiography. Nonselective angiography was performed which appeared to give a somewhat diagnostic quality angiogram. At the end the procedure the apparatus was removed the sheath was removed and hemostasis was achieved using TR banding patient was transferred to the postop putting in stable addition ANGIOGRAPHIC RESULTS The left main artery Has an eccentric distal 10 to 20% stenosis The left anterior descending artery Has an ostial eccentric 10 to 20% stenosis followed by a stent in the proximal to mid segment which is widely patent with minimal in-stent restenosis distal to the stent there are 30% stenosis The circumflex artery Is a dominant vessel and has proximal 10 to 20% stenoses. A first obtuse marginal artery has a proximal concentric 95% stenosis. A large posterior descending artery has a proximal 70 to 80% concentric stenosis followed by additional 30% stenosis The right coronary artery Is nondominant yet still large vessel which has proximal and mid vessel 10 to 20% stenoses distally there is a 30% stenosis followed by a concentric 50 and then 70 to
[2022-03-18 08:14] LABS: Coronavirus 19, PCR Not Detected (NotDetected); Influenza A, PCR Not Detected (NotDetected); Influenza B, PCR Not Detected (NotDetected)
[2022-03-18 08:34] LABS: Basophils # 0.1 K/mm3 (0-0.2); Basophils % 1.5 % (0.1-2.0); Eosinophils # 0.2 K/mm3 (0.0-0.4); Eosinophils % 3.7 % (0.1-12.0); Hemoglobin 14.1 g/dL (14.1-18.0); Lymphocytes # 1.3 K/mm3 (0.7-4.5); Lymphocytes % 21.6 % (10-50); Mean Corpuscular HGB Conc 34.4 g/dL (31.8-35.4); Mean Corpuscular Hemoglobin 32.1 pg (27.0-31.2); Mean Corpuscular Volume 93.3 fl (80-94); Mean Platelet Volume 7.8 fl (7.4-10.4); Monocytes # 0.4 K/mm3 (0.1-1.0); Monocytes % 6.4 % (1.7-9.3); Neutrophils # 4.1 K/mm3 (1.8-7.8); Neutrophils % 66.8 % (37.0-80.0); Platelet Count 261 K/mm3 (142-424); Red Blood Count 4.39 M/mm3 (4.60-6.20); Red Cell Distribution Width 13.9 % (11.5-17.5); White Blood Count 6.1 K/mm3 (4.8-10.8)
[2022-03-18 08:38] LABS: Anion Gap 10.6 mEq/L (5-15); Blood Urea Nitrogen 13 mg/dl (9-20); Calcium 8.9 mg/dl (8.4-10.2); Carbon Dioxide 29 mmol/L (22.0-30.0); Chloride 107 mmol/L (98-107); Creatinine Clearance Estimated 83 mL/min (50-200); Estimated Glomerular Filt Rate 84 ml/min (>60); GFR (African American) 101 ML/MIN (>60); Glucose 109 mg/dl (74-100); Potassium 4.6 mmoL/L (3.5-5.1); Sodium 142 mmol/L (136-145)
[2022-03-18 10:46] LABS: CATHL Activated Clotting Time 261 SEC (74-125)
--- NOTE | 2022-03-18 14:15 | HMH.PHACL ---
PHA Creative Services Coordinator Discharge Med Population Health Manager: Luis Fernando Parker has received discharge medication counseling on the following medications: ASPIRIN PLAVIX CARVEDILOL LOSARTAN PATIENT HAS ALLERGY TO STATINS, WILL BE RECEIVING LEQVIO INJECTIONS. PATIENT VERBALIZED UNDERSTANDING AND HAD NO QUESTIONS AT THIS TIME. -EMANUEL FARNSWORTH, PHARMD
== END 2022-03-18 14:20 | disposition home or self-care (01) ==
PROVIDERS: PCP Family Medicine; Visit Provider Internal Medicine
DX: E78.2 Mixed hyperlipidemia (principal); I11.0 Hypertensive heart disease with heart failure; I25.10 Atherosclerotic heart disease of native coronary artery without angina pectoris; I25.5 Ischemic cardiomyopathy; I50.22 Chronic systolic (congestive) heart failure; I70.1 Atherosclerosis of renal artery; I71.4 Abdominal aortic aneurysm, without rupture; I70.213 Atherosclerosis of native arteries of extremities with intermittent claudication, bilateral legs; R94.30 Abnormal result of cardiovascular function study, unspecified; F17.210 Nicotine dependence, cigarettes, uncomplicated; I77.1 Stricture of artery
CPT/HCPCS: 36251; 36415; 80048; 85025; 85347; 92928; 93458; 99152; 99153; C1725; C1769; C1876; C9600; C9803; J1644; Q9967; U0003; U0005